=== PATIENT | female | born 1955 | race Caucasian/White ===

== ENCOUNTER 2018-02-17 11:48 | Emergency (ER) | payer OTHER ==
--- NOTE | 2018-02-17 12:48 | RAD ---
LEFT SHOULDER THREE VIEWS: History: Fell on shoulder last night. FINDINGS: There is a fracture which is a nondisplaced humeral neck and greater tuberosity fracture. No dislocat ion. IMPRESSION: Humeral neck and greater tuberosity fracture. POS: TEE
[2018-02-17] MEDS ORDERED: Ondansetron ODT 4 MG TAB ONE (14:10)
== END 2018-02-17 14:38 | disposition home or self-care (01) ==
LOC: ERS 11:48
DX: S42.252A Displaced fracture of greater tuberosity of left humerus, initial encounter for closed fracture (principal); W19.XXXA Unspecified fall, initial encounter
CPT/HCPCS: Q0162

== ENCOUNTER 2021-02-05 14:52 | Outpatient (CLI) | payer OTHER | END 2021-02-05 14:53 | disposition home or self-care (01) | LOC: BICMAMMO 14:52 | PROVIDERS: ATTEND Family Medicine | DX: Z12.31 Encounter for screening mammogram for malignant neoplasm of breast (principal); Z13.820 Encounter for screening for osteoporosis; N95.9 Unspecified menopausal and perimenopausal disorder; M81.0 Age-related osteoporosis without current pathological fracture | CPT/HCPCS: 77063; 77067; 77080 ==

== ENCOUNTER 2023-05-22 17:02 | Inpatient (IN) | payer OTHER ==
[2023-05-22 18:38] LABS: #Eosinphils 0.1 thou/uL (0.0-0.7); #Monocytes 0.6 thou/uL (0.11-0.59); #Neutrophils 3.3 thou/uL (1.40-6.50); %Basophils 0.6 % (0.0-1.0); %Eosinophils 1.7 % (0.0-10.0); %Lymphocytes 22.1 % (21.0-51.0); %Neutrophils 63.6 % (42.0-75.0); Hematocrit 39.7 % (36.0-47.0); Hemoglobin 13.2 g/dL (12.0-16.0); Mean Corpuscular HGB CONC 33.2 g/dL (32.0-36.0); Mean Corpuscular Hemoglobin 30.6 pg (27.0-31.0); Mean Corpuscular Volume 92.1 fl (78.0-98.0); Mean Platelet Volume 11.6 fL (7.4-10.4); Platelet Count 217 10x3/uL (130-400); RBC Distribution Width 13.7 % (11.5-14.5); Red Blood Cell (RBC) Count 4.31 mill/uL (4.20-5.40); White Blood Cell (WBC) Count 5.2 10x3/uL (4.8-10.8)
[2023-05-22] MEDS ORDERED: Ampicillin/Sulbactam 3 GM in Sodium Chloride 0.9% 100 ML IVPB SCH (18:45)
[2023-05-22 19:05] LABS: ALT (SGPT) 12 U/L (8-55); AST (SGOT) 17 U/L (5-34); Albumin 4.5 g/dL (3.4-4.8); Alkaline Phosphatase 110 U/L (40-110); Anion Gap 12 mmol/L (10-20); BUN (Urea Nitrogen) 12 mg/dL (9.8-20.1); Bilirubin, Total 0.8 mg/dL (0.2-1.2); Calc. Creatinine Clearance 0 mL/min (70-130); Calcium 9.4 mg/dL (7.8-10.44); Carbon Dioxide 24 mmol/L (23-31); Chloride 107 mmol/L (98-107); Estimated GFR 64; Glucose 100 mg/dL (80-115); Potassium 3.6 mmol/L (3.5-5.1); Protein, Total 7.5 g/dL (5.8-8.1); Sodium 139 mmol/L (136-145)
[2023-05-22] MEDS ORDERED: Ondansetron ODT 4 MG TAB PO PRN (19:12)
[2023-05-22] MEDS ORDERED: Ondansetron PF 4 MG/2 ML Vial IVP PRN (19:12)
[2023-05-22 23:55] VITALS: BMI 23.5
[2023-05-23] MEDS: Ampicillin/Sulbactam 3 GM in Sodium Chloride 0.9% 100 ML IVPB SCH ×4 (02:55→20:19)
[2023-05-23] MEDS: Ketorolac Tromethamine 30 MG/ML VIAL IVP PRN ×2 (03:12→20:24)
[2023-05-23 05:43] LABS: #Eosinphils 0.1 thou/uL (0.0-0.7); #Monocytes 0.5 thou/uL (0.11-0.59); #Neutrophils 1.9 thou/uL (1.40-6.50); %Basophils 0.8 % (0.0-1.0); %Eosinophils 2.3 % (0.0-10.0); %Lymphocytes 35.8 % (21.0-51.0); %Monocytes 13.6 % (0.0-10.0); %Neutrophils 47.2 % (42.0-75.0); Hematocrit 37.2 % (36.0-47.0); Mean Corpuscular HGB CONC 32.3 g/dL (32.0-36.0); Mean Corpuscular Hemoglobin 29.9 pg (27.0-31.0); Mean Corpuscular Volume 92.8 fl (78.0-98.0); Mean Platelet Volume 11.3 fL (7.4-10.4); Platelet Count 189 10x3/uL (130-400); RBC Distribution Width 13.6 % (11.5-14.5); Red Blood Cell (RBC) Count 4.01 mill/uL (4.20-5.40)
[2023-05-23 06:06] LABS: Anion Gap 14 mmol/L (10-20); BUN (Urea Nitrogen) 13 mg/dL (9.8-20.1); Calc. Creatinine Clearance 76 mL/min (70-130); Calcium 8.8 mg/dL (7.8-10.44); Carbon Dioxide 22 mmol/L (23-31); Chloride 107 mmol/L (98-107); Estimated GFR 88; Glucose 79 mg/dL (80-115); Potassium 3.6 mmol/L (3.5-5.1); Sodium 139 mmol/L (136-145)
[2023-05-23] MEDS: Acetaminophen 325 MG TAB PO PRN ×2 (14:59→19:24)
[2023-05-23] MEDS: Atorvastatin Calcium 20 MG TAB PO SCH (20:19)
[2023-05-23] MEDS: Saccharomyces boulardii 250 MG CAP PO SCH (20:19)
[2023-05-24] MEDS: Ampicillin/Sulbactam 3 GM in Sodium Chloride 0.9% 100 ML IVPB SCH ×4 (01:38→20:38)
[2023-05-24 05:57] LABS: #Eosinphils 0.1 thou/uL (0.0-0.7); #Monocytes 0.5 thou/uL (0.11-0.59); #Neutrophils 2.3 thou/uL (1.40-6.50); %Basophils 0.7 % (0.0-1.0); %Eosinophils 2.6 % (0.0-10.0); %Lymphocytes 32.2 % (21.0-51.0); %Neutrophils 53.3 % (42.0-75.0); Hematocrit 37.4 % (36.0-47.0); Hemoglobin 12.2 g/dL (12.0-16.0); Mean Corpuscular HGB CONC 32.6 g/dL (32.0-36.0); Mean Corpuscular Hemoglobin 30.1 pg (27.0-31.0); Mean Corpuscular Volume 92.3 fl (78.0-98.0); Mean Platelet Volume 11.7 fL (7.4-10.4); Platelet Count 211 10x3/uL (130-400); RBC Distribution Width 13.7 % (11.5-14.5); Red Blood Cell (RBC) Count 4.05 mill/uL (4.20-5.40); White Blood Cell (WBC) Count 4.3 10x3/uL (4.8-10.8)
[2023-05-24 06:42] LABS: Anion Gap 14 mmol/L (10-20); BUN (Urea Nitrogen) 15 mg/dL (9.8-20.1); Calc. Creatinine Clearance 74 mL/min (70-130); Calcium 8.9 mg/dL (7.8-10.44); Carbon Dioxide 19 mmol/L (23-31); Chloride 110 mmol/L (98-107); Estimated GFR 86; Glucose 87 mg/dL (80-115); Potassium 4.3 mmol/L (3.5-5.1); Sodium 139 mmol/L (136-145)
[2023-05-24] MEDS ORDERED: Lorazepam 1 MG TAB PO PRN (16:59)
[2023-05-24] MEDS: Atorvastatin Calcium 20 MG TAB PO SCH (20:38)
[2023-05-24] MEDS: Saccharomyces boulardii 250 MG CAP PO SCH (20:39)
[2023-05-25] MEDS: Acetaminophen 325 MG TAB PO PRN ×2 (00:47→15:46)
[2023-05-25] MEDS: Ampicillin/Sulbactam 3 GM in Sodium Chloride 0.9% 100 ML IVPB SCH ×4 (02:05→20:19)
[2023-05-25] MEDS ORDERED: Lidocaine 1% (PF) 30 ML VIAL SC SCH (10:00)
[2023-05-25] MEDS ORDERED: Polyethylene Glycol 3350 17 GM Packet PO PRN (10:09)
[2023-05-25] MEDS ORDERED: ALPRAZolam 0.25 MG TAB PO PRN (11:46)
[2023-05-25] MEDS ORDERED: hydrALAZINE 25 MG TAB PO PRN (11:46)
[2023-05-25] MEDS: Atorvastatin Calcium 20 MG TAB PO SCH (20:19)
[2023-05-25] MEDS: Saccharomyces boulardii 250 MG CAP PO SCH (20:19)
[2023-05-26] MEDS: Ampicillin/Sulbactam 3 GM in Sodium Chloride 0.9% 100 ML IVPB SCH ×2 (02:31→08:50)
[2023-05-26] MEDS: Acetaminophen 325 MG TAB PO PRN ×2 (03:52→08:50)
[2023-05-26 12:03] VITALS: BP 136/93; TEMP 97.2
== END 2023-05-26 13:20 | disposition home or self-care (01) | DRG 513 ==
LOC: ERS 17:02 → T4-B 18:32
PROVIDERS: ADMIT Family Medicine; ATTEND Internal Medicine
PROC: 0L970ZZ Drainage of Right Hand Tendon, Open Approach (ICD-10-PCS; principal; 2023-05-26)
DX: M65.841 Other synovitis and tenosynovitis, right hand (principal); L02.511 Cutaneous abscess of right hand; L03.011 Cellulitis of right finger; W55.01XA Bitten by cat, initial encounter; E78.5 Hyperlipidemia, unspecified; N18.2 Chronic kidney disease, stage 2 (mild); Z90.710 Acquired absence of both cervix and uterus; Z98.891 History of uterine scar from previous surgery; Z90.49 Acquired absence of other specified parts of digestive tract; Z90.89 Acquired absence of other organs; F40.240 Claustrophobia; R03.0 Elevated blood-pressure reading, without diagnosis of hypertension
CPT/HCPCS: 36415; 80048; 80053; 83605; 85025; 86140; 87040; 87070; 87205; 96365; J0295; J1885; J3490